=== PATIENT | female | born 1960 | race Caucasian/White ===

== ENCOUNTER 2021-03-20 09:23 | Outpatient (REF) | payer OTHER, SELFPAY ==
--- NOTE | ~2021-03-20 | MR_ITS ---
EXAMINATION: MR BRAIN WITHOUT AND WITH CONTRAST CLINICAL INFORMATION: 60-year-old with vertigo and headaches. Evaluate for possible acoustic neuroma. COMPARISON: None TECHNIQUE: Multiplanar, multisequence MRI of the brain/IACs was obtained before and after the intravenous administration of 6 mL of Gadavist. FINDINGS: IACs: There is a 1 mm punctate enhancing focus in the distal aspect of the left IAC adjacent to the fundus. This does not appear to correspond to a definite lesion on the thin section T2-weighted images and may reflect an enhancing vessel. The right IAC is unremarkable. The cranial nerve VII and VIII complexes appear within normal limits on the thin section axial T2-weighted images. AICA Loops: None. Membranous Labyrinths: Normal, no abnormal enhancement. CP Angle Cisterns: No mass lesions or abnormal enhancement. Brain Volume: Within normal limits. Brain and Meninges: DWI sequence demonstrates no restricted diffusion. There are scattered patchy and punctate foci of FLAIR/T2 signal hyperintensity within the subcortical and deeper white matter of both cerebral hemispheres without abnormal enhancement, which are nonspecific findings but likely reflect zones of chronic ischemic microangiopathy. Remainder of the brain is normal in morphology and signal intensity. No evidence for hemorrhage, extra-axial fluid collection, hemosiderin staining or abnormal mineral deposition. No intracranial mass lesions, abnormal enhancement, space-occupying process or mass effect. Vessels: Signal voids are seen within the visualized intracranial vessels near the skull base. Ventricles and Subarachnoid Spaces: The ventricular system and subarachnoid spaces are within normal limits without hydrocephalus. Orbital Structures: The visualized orbital structures are grossly unremarkable within the limitations of the study. Bony Structures: Bony structures appear grossly intact. MR/MR head/brain wo/w con IMPRESSION: 1. 1 mm focus of faint nodular enhancement in the left IAC near the fundus which is nonspecific. A follow-up MRI of the IACs without and with contrast is recommended in 6 months to reassess. 2. Probable chronic ischemic microangiopathy in the white matter of both cerebral hemispheres.
[2021-03-20 09:28] LABS: Blood Urea Nitrogen 11 mg/dL (9-16); Estimated Glomerular Filt Rate > 60
== END 2021-03-20 09:24 | disposition home or self-care (01) ==
LOC: HO.MRI 09:23
PROVIDERS: PCP Internal Medicine; Visit Provider Otolaryngology
DX: H81.4 Vertigo of central origin (principal); G44.219 Episodic tension-type headache, not intractable; D33.3 Benign neoplasm of cranial nerves
CPT/HCPCS: 36415; 70553; 82565; 84520; A9585